=== PATIENT | male | born 1970 | race Caucasian/White ===

== ENCOUNTER 2018-09-30 01:48 | Emergency (ER) | payer OTHER ==
[2018-09-30 01:54] VITALS: BP 156/99; PULSE 63; TEMP 97.6; BMI 23.1
--- NOTE | 2018-09-30 02:18 | PDOC ---
History of Present Illness - General Chief Complaint: Lightheaded Stated Complaint: LIGHTHEADED Time Seen by Provider: 09/30/18 01:50 - History of Present Illness Initial Comments: 09/30/18 02:13 48 M with no PMH presents to ED with L arm numbness x 2 days. Pt states that he feels like he hit his "funnybone" in his left arm and has a numbness going from his 4th and 5th finger on his left hand up to his shoulder. He denies any weakness. Denies neck pain. Denies any sensory or motor deficits in any other extremity. Denies headache. Pt denies CP/SOB/palpitations but states that he awoke in the middle of the night tonight with the numbness in his arm and was concerned it could be a sign of a heart attack. He denies smoking history. Denies family history of [place]. States that he is an avid bike rider and rode 50 miles this past weekend. Past History - Past Medical History Allergies/Adverse Reactions: Allergies Allergy/AdvReac Type Severity Reaction Status Date / Time No Known Allergies Allergy Verified 09/30/18 01:50 Home Medications: Ambulatory Orders Omeprazole 20 mg PO DAILY 09/30/18 COPD: No GI Disorders: Yes (ACID REFLUX) - Suicide/Smoking/Psychosocial Hx Smoking History: Never smoked Have you smoked in the past 12 months: No Information on smoking cessation initiated: No Hx Alcohol Use: No Drug/Substance Use Hx: No Substance Use Type: None Review of Systems - Review of Systems Comments:: 09/30/18 02:15 "GENERAL/CONSTITUTIONAL: No fever or chills. No weakness. HEAD, EYES, EARS, NOSE AND THROAT: No change in vision. No ear pain or discharge. No sore throat. CARDIOVASCULAR: No chest pain, no shortness of breath, no loss of consciousness RESPIRATORY: No cough, wheezing, or hemoptysis. GASTROINTESTINAL: No nausea, vomiting, diarrhea or constipation. GENITOURINARY: No dysuria, frequency, or change in urination. MUSCULOSKELETAL: No joint or muscle swelling or pain. No neck or back pain. SKIN: No rash NEUROLOGIC: +L arm numbness, No vertigo ENDOCRINE: No increased thirst. No abnormal weight change. HEMATOLOGIC/LYMPHATIC: No anemia, easy bleeding, or history of blood clots. ALLERGIC/IMMUNOLOGIC: No hives or skin allergy. *Physical Exam - Vital Signs Last Vital Signs Temp Pulse Resp BP Pulse Ox 97.6 F 63 16 156/99 100 09/30/18 01:51 09/30/18 01:51 09/30/18 01:51 09/30/18 01:51 09/30/18 01:51 - Physical Exam Comments: 09/30/18 02:15 "GENERAL: Awake, alert, and fully oriented, in no acute distress. HEAD: No signs of trauma EYES: PERRLA, EOMI, sclera anicteric, conjunctiva clear ENT: Auricles normal inspection, hearing grossly normal, nares patent, oropharynx clear without exudates. Moist mucosa NECK: Nontender, no stepoffs, Normal ROM, supple, no lymphadenopathy, JVD, or masses LUNGS: Breath sounds equal, clear to auscultation bilaterally. No wheezes, and no crackles HEART: Regular rate and rhythm, normal S1 and S2, no murmurs, rubs or gallops ABDOMEN: Soft, nontender, normoactive bowel sounds. No guarding, no rebound. No masses EXTREMITIES: Normal range of motion, no edema. No clubbing or cyanosis. No cords, erythema, or tenderness NEUROLOGICAL: Cranial nerves II through XII intact. + diminished sensation in LUE in distribution of ulnar nerve, full strength, 5/5 strength and sensation in all other extremities, Normal speech, normal gait, normal cerebellar function SKIN: Warm, Dry, normal turgor, no rashes or lesions noted. Heart Score/ECG Review - ECG Impressions Comment:: 09/30/18 02:16 NSR, no CHRIS/STDs, no TWIs, axis wnl, intervals wnl, rate 65 Medical Decision Making - Medical Decision Making 09/30/18 02:16 48 M with no PMH presenting with paresthesia of LUE. Pt with likely ulnar neuropathy. No other neuro deficits or headache to suggest CVA or other intracranial pathology. Pt with normal EKG, no signs of ischemia. I offered the pt labwork with cardiac enzymes to r/o cardiac event. However, he states that he feels reassured that his EKG is normal and is now requesting to leave without bloodwork. Pt has no cardiac risk factors and no chest pain/SOB to suggest ACS. I have very low suspicion for cardiac pathology as cause of pt's LUE numbness. - F/u PMD - Neuro referral Pt is well appearing, with normal vitals. Clinically stable for DC at this time. I discussed the physical exam findings, ancillary test results and final diagnoses with the patient. I answered all of the patient's questions. The patient was satisfied with the care received and felt comfortable with the discharge plan and treatment plan. The patient agrees to follow up with the primary care physician within 24-72 hours. *DC/Admit/Observation/Transfer Diagnosis at time of Disposition: Ulnar neuropathy - Discharge Dispostion Disposition: HOME Condition at time of disposition: Stable - Referrals Referrals: Brett Ramos DO [Staff Physician] - - Patient Instructions Printed Discharge Instructions: DI for Peripheral Neuropathy Additional Instructions: Your left arm numbness is likely due to neuropathy, a nerve issue. You should follow up with a neurologist for further evaluation. Call the number provided to make an appointment. If you experience any chest pain, shortness of breath, palpitations, worsening numbness or weakness in your arms or legs, or any other concerning symptoms, return to the ER immediately. Otherwise, follow up with your primary doctor within 1 week. - Post Discharge Activity - Attestations Physician Attestion: 09/30/18 02:21 I, Dr. Bk Santos MD, attest that this document has been prepared under my direction and personally reviewed by me in its entirety. I further attest, that it accurately reflects all work, treatment, procedures and medical decision -making performed by me.
--- NOTE | 2018-09-30 09:50 | EKG ---
Test Reason : Blood Pressure : / mmHG Vent. Rate : 065 BPM Atrial Rate : 065 BPM P-R Int : 164 ms QRS Dur : 082 ms QT Int : 410 ms P-R-T Axes : 047 057 023 degrees QTc Int : 426 ms NORMAL SINUS RHYTHM POSSIBLE LEFT ATRIAL ENLARGEMENT BORDERLINE ECG NO PREVIOUS ECGS AVAILABLE Confirmed by SEDA SOTOMAYOR, ROCHELLE ([id number]) on 09/30/2018 9:49:50 AM Referred By: MD ESPINOZA Confirmed By:ROCHELLE STACK MD
== END 2018-09-30 02:28 | disposition home or self-care (01) ==
LOC: FER 01:48
DX: G56.22 Lesion of ulnar nerve, left upper limb (principal); K21.9 Gastro-esophageal reflux disease without esophagitis
CPT/HCPCS: 93005; 99281-25

== ENCOUNTER 2020-07-11 20:33 | Emergency (ER) | payer OTHER ==
[2020-07-11 20:40] VITALS: BP 150/98; PULSE 73; TEMP 98.2; BMI 23.3
[2020-07-11] MEDS ORDERED: ALPRAZolam 1 MG TABLET PO PRN (20:57)
[2020-07-11] MEDS ORDERED: ALPRAZolam 0.25 MG TABLET ONE (21:07)
[2020-07-11 21:16] LABS: BASO % 1.4 % (0-2.0); EOS % 4.7 % (0-4.5); HEMATOCRIT 44.5 % (35.4-49); HEMOGLOBIN 15.2 GM/dl (11.7-16.9); LYMPH % 25.5 % (8-40); MCH 31.4 pg (25.7-33.7); MCHC 34.2 g/dl (32.0-35.9); MEAN CELL VOLUME 91.8 fl (80-96); MONO % 9.2 % (3.8-10.2); NEUT % 59.2 % (42.8-82.8); PLATELET COUNT 175 K/MM3 (134-434); RBC 4.85 M/mm3 (4.00-5.60); RDW 11.8 % (11.9-15.9); WHITE BLOOD COUNT 7.5 K/mm3 (4.0-10.8)
[2020-07-11 21:31] LABS: ALBUMIN 4.2 g/dl (3.4-5.0); CALCIUM 8.7 mg/dl (8.5-10); CREATININE 0.8 mg/dl (0.55-1.3); POTASSIUM 3.4 mmol/L (3.5-5.1); TOT PROT 6.7 g/dl (6.4-8.2)
--- NOTE | 2020-07-11 21:41 | PDOC ---
Documentation entered by Iqra Diana SCRIBE, acting as scribe for Cyndie Basilio MD. Cyndie Basilio MD: This documentation has been prepared by the Lebron yu Xhesika, SCRIBE, under my direction and personally reviewed by me in its entirety. I confirm that the documentation accurately reflects all work, treatment, procedures, and medical decision making performed by me. History of Present Illness - General Chief Complaint: Pain Stated Complaint: LEFT ARM DISCOMFORT Time Seen by Provider: 07/11/20 20:36 Exam Limitations: No Limitations - History of Present Illness Initial Comments: 07/11/20 20:56 HPI The patient is a 50 year old male, who presents to the emergency department with BUE and BLE tingling sensation xseveral days. Pt states he endorses chronic L arm (below the elbow) tingling, however, the R arm and BLE tingling is new. Pt reports associated nausea and SOB related to his symptoms. Pt states he saw his doctor this morning, and was prescribed lexapro for anxiety. Pt states he took 20mg lexapro tonight with no improvement of symptoms. Pt states he does not feel like himself and has been stressed recently. PAST MEDICAL HISTORY: no significant history PAST SURGICAL HISTORY: no significant history FAMILY HISTORY: no pertinent history SOCIAL HISTORY: Pt lives with family and is employed. MEDICATIONS: reviewed ALLERGIES: As per nursing notes Adult ROS General: No fevers or chills, no weakness, no weight loss HEENT: No change in vision. No sore throat,. No ear pain CardioVascular: No chest pain. +shortness of breath Respiratory:No cough, or wheezing. Gastrointestinal: no vomiting, diarrhea or constipation, No rectal bleeding. +nausea Genitourinary: No dysuria, hematuria, or frequency Musculoskeletal: No joint or muscle pain or swelling Neurologic: No headache, vertigo, dizziness or loss of consciousness. +BUE and BLE sensation of tingling Psychiatric: nor depression Skin: No rashes or easy bruising Endocrine: no increased thirst or abnormal weight change Allergic: no skin or latex allergy All other systems reviewed and normal Adult Exam: General: Well-nourished well-developed individual, no acute distress HEENT: Throat: Normal, tonsils normal, no erythema or exudate Neck: Supple, no meningeal signs, no lymphadenopathy Eyes::Pupils equal reactive and round, extraocular motion intact Chest: Nontender to palpation Cardiac: S1-S2 normal, regular rate and rhythm, no murmurs rubs or gallops Respiratory: Lungs clear to auscultation bilateral Extremities: Warm, dry, no cyanosis, clubbing, or edema Skin: No rashes Neuro: Alert and oriented x3, nonfocal exam, grossly intact, normal gait Psych: Normal mood and affect Assessment and plan: This is a 50-year-old male who comes in complaining of tingling in his bilateral upper and lower extremities. Patient has had some ulnar nerve tingling and discomfort chronically in his left upper extremity however the right and lower extremities are new. Patient has a high level of anxiety. Patient saw his PMD today and was diagnosed with an anxiety and started on Lexapro. Patient had an EKG done that showed normal sinus rhythm and no acute ST-T wave changes essentially normal EKG. Patient's troponin was not measurable and his rest of his blood work was unremarkable. Patient was given Xanax with some improvement in his symptoms and discharged. Past History - Medical History Allergies/Adverse Reactions: Allergies Allergy/AdvReac Type Severity Reaction Status Date / Time No Known Allergies Allergy Verified 07/11/20 20:35 Home Medications: Ambulatory Orders Escitalopram Oxalate [Lexapro -] 10 mg PO DAILY 07/11/20 Omeprazole 20 mg PO DAILY 07/11/20 COPD: No GI Disorders: Yes (ACID REFLUX) Psychiatric Problems: Yes (ANXIETY) - Psycho-Social/Smoking History Smoking History: Former smoker Have you smoked in the past 12 months: No Information on smoking cessation initiated: No - Substance Abuse Hx (Audit-C & DAST Scrn) How often the patient has a drink containing alcohol: 2-3 times / week Score: In Men: 4 or > Positive; In Women: 3 or > Positive: 3 Screen Result (Pos requires Nsg. Audit-10AR): Negative In the last yr the pt used illegal drug/Rx for NonMed reason: No Score: Yes response is considered Positive: 0 Screen Result (Positive result requires Nsg. DAST-10): Negative *Physical Exam - Vital Signs Last Vital Signs Temp Pulse Resp BP Pulse Ox 98.2 F 73 18 150/98 98 07/11/20 20:33 07/11/20 20:33 07/11/20 20:33 07/11/20 20:33 07/11/20 20:33 ED Treatment Course - LABORATORY CBC & Chemistry Diagram: 07/11/20 21:05 07/11/20 21:05 Discharge - Discharge Information Problems reviewed: Yes Clinical Impression/Diagnosis: Anxiety Condition: Stable Disposition: HOME - Admission No - Follow up/Referral - Patient Discharge Instructions Additional Instructions: Return to the emergency department immediately with ANY new, persistent or worsening symptoms. Continue any medications as previously prescribed by your physician. You should follow up with your primary doctor as soon as possible regarding today's emergency department visit. . Please make sure your doctor reviews the results of your emergency evaluation. Thank you for coming to the Emergency Department today for your care. It was a pleasure to see you today. Please note that your evaluation is INCOMPLETE until you follow-up with your doctor. - Post Discharge Activity
--- NOTE | 2020-07-12 09:23 | EKG ---
Test Reason : Blood Pressure : / mmHG Vent. Rate : 067 BPM Atrial Rate : 067 BPM P-R Int : 170 ms QRS Dur : 084 ms QT Int : 418 ms P-R-T Axes : 053 063 025 degrees QTc Int : 441 ms NORMAL SINUS RHYTHM POSSIBLE LEFT ATRIAL ENLARGEMENT BORDERLINE ECG WHEN COMPARED WITH ECG OF 30-SEP-2018 01:58, T WAVE AMPLITUDE HAS DECREASED IN ANTERIOR LEADS Confirmed by Shahzad Kennedy MD ([id number]) on 07/12/2020 9:23:22 AM Referred By: DR BIRMINGHAM Confirmed By:Shahzad Kennedy MD
== END 2020-07-11 21:57 | disposition home or self-care (01) ==
LOC: FER 20:33
DX: F41.9 Anxiety disorder, unspecified (principal)
CPT/HCPCS: 36415; 80053; 82550; 84484; 85025; 93005; 99284-25

== ENCOUNTER 2024-01-13 12:56 | Emergency (ER) | payer OTHER ==
[2024-01-13 13:20] VITALS: RESP 16; TEMP 98.4; BMI 23.3
[2024-01-13 13:38] LABS: ALBUMIN 4.7 g/dl (3.4-5.0); BILIRUBIN,TOTAL 1.3 mg/dl (0.2-1); CALCIUM 9.4 mg/dl (8.5-10.1); CREATININE 0.9 mg/dl (0.6-1.3); HEMATOCRIT 45.9 % (35.4-49); HEMOGLOBIN 15.6 G/dL (11.7-16.9); MCH 30.7 pg (25.7-33.7); MEAN CELL VOLUME 90.5 fl (80-96); MEAN PLT VOLUME 8.9 fl (7.5-11.1); PLATELET COUNT 182.8 10^3/uL (134-434); POTASSIUM 3.5 mmol/L (3.5-5.1); RBC 5.07 10^6/uL (4.00-5.60); RDW 13.6 % (11.9-15.9); TOT PROT 7.2 g/dl (6.4-8.2); WHITE BLOOD COUNT 5.6 10^3/uL (4.0-10.8)
[2024-01-13 13:43] LABS: INR 1.12 (0.83-1.09)
[2024-01-13 13:47] LABS: PLATELET ESTIMATE ADEQUATE
[2024-01-13 14:08] VITALS: BP 150/84; PULSE 74
[2024-01-13] MEDS: SODIUM CHLORIDE 1,000 ML IV STA (14:39)
== END 2024-01-13 16:28 | disposition home or self-care (01) ==
LOC: FER 12:56
PROC: 3E0337Z Introduction of Electrolytic and Water Balance Substance into Peripheral Vein, Percutaneous Approach (ICD-10-PCS; principal; 2024-01-13)
DX: R07.89 Other chest pain (principal); R06.02 Shortness of breath; R42 Dizziness and giddiness; Z20.822 Contact with and (suspected) exposure to COVID-19
CPT/HCPCS: 0241U-QW; 36415; 71046-TC-FY; 80053; 84484; 85027; 85379; 85610; 85730; 93005; 99285-25